=== PATIENT | female | born 1985 | race African-American/Black ===

== ENCOUNTER 2025-07-10 11:44 | Emergency (ER) | payer MEDICAID, OTHER ==
[2025-07-10 17:50] LABS: #Basophils 0.03 10x3/uL (0.0-0.2); #Eosinophils 0.10 10x3/uL (0.0-0.7); #Monocytes 0.47 10x3/uL (0.11-0.59); #Neutrophils 3.30 10x3/uL (1.40-6.50); %Basophils 0.5 % (0.0-1.0); %Eosinophils 1.7 % (0.0-10.0); %Lymphocytes 33.8 % (21.0-51.0); %Monocytes 8.0 % (0.0-10.0); %Neutrophils 55.8 % (42.0-75.0); Hematocrit 38.0 % (36.0-47.0); Hemoglobin 12.0 g/dL (12.0-16.0); Mean Corpuscular Hemoglobin 28.4 pg (27.0-31.0); Mean Corpuscular Volume 90.0 fL (78.0-98.0); Platelet Count 266 10x3/uL (130-400); Red Blood Cell (RBC) Count 4.22 mill/uL (4.20-5.40); White Blood Cell (WBC) Count 5.91 10x3/uL (4.8-10.8)
[2025-07-10 18:10] LABS: CRP, High Sensitivity at Bryan 0.09 mg/dL (< or = 0.5); Magnesium 2.1 mg/dL (1.6-2.6)
[2025-07-10 18:12] LABS: ALT (SGPT) 16 U/L (Less than 34); AST (SGOT) 17 U/L (11-34); Albumin 4.2 g/dL (3.1-4.5); Alkaline Phosphatase 74 U/L (40-110); Anion Gap 13 mmol/L (10-20); BUN (Urea Nitrogen) 10 mg/dL (7.0-18.7); Bilirubin, Total 0.2 mg/dL (0.3-1.2); Calc. Creatinine Clearance 0 mL/min (70-130); Calcium 9.3 mg/dL (7.8-10.44); Carbon Dioxide 25 mmol/L (22-29); Chloride 106 mmol/L (98-107); Globulin 3.2 g/dL (2.4-3.5); Glucose 126 mg/dL (70-105); Potassium 4.1 mmol/L (3.5-5.1); Sodium 140 mmol/L (136-145)
[2025-07-10] MEDS ORDERED: Orphenadrine Citrate 60 MG/2 ML VIAL ONE ×2 (18:34→18:36)
== END 2025-07-10 16:50 | disposition home or self-care (01) ==
LOC: ERS 11:44
DX: M66.0 Rupture of popliteal cyst (principal); Z79.899 Other long term (current) drug therapy
CPT/HCPCS: 36415; 80053; 83735; 85025; 86141; 96372; J2360

== ENCOUNTER 2025-08-22 07:55 | Emergency (ER) | payer OTHER ==
[2025-08-22] MEDS ORDERED: predniSONE 20 MG TAB ONE ×2 (12:14→12:15)
[2025-08-22] MEDS ORDERED: Albuterol 2.5 MG (0.5 mL) NEB ONE (12:44)
== END 2025-08-22 13:31 | disposition home or self-care (01) ==
LOC: ERS 07:55
DX: J45.901 Unspecified asthma with (acute) exacerbation (principal); J01.90 Acute sinusitis, unspecified; Z79.52 Long term (current) use of systemic steroids; Z79.899 Other long term (current) drug therapy
CPT/HCPCS: 71045; 87428; 94640; J7512; J7611